=== PATIENT | male | born 2000 | race Native Hawaiian/Other Pacific Islander ===

== ENCOUNTER → 2022-03-12 | Outpatient (CLI) | payer BC ==
--- NOTE | 2022-03-12 16:30 | Diagnostic Imaging Report ---
INDICATION: Left testicular swelling. TECHNIQUE: Real-time grayscale sonographic imaging and color vascular evaluation of the scrotum. CORRELATION STUDY: None. FINDINGS: RIGHT TESTICLE: 3.2 x 1.8 x 3.0 cm. LEFT TESTICLE: 3.9 x 2.2 x 2.8 cm. The testicles are in normal location and demonstrate homogeneous echotexture. There is vascular flow to the testicles. Right epididymis is unremarkable. Left epididymis does demonstrate slight increased vascularity, and possibility of mild epididymitis not excluded and somewhat suspect. Small left-sided hydrocele. IMPRESSION: 1. Suspect for mild left-sided epididymitis along with small left-sided hydrocele. Dictated by: Dictated on workstation # [id number]
== END ==
LOC: RAD 15:30
PROVIDERS: ATTEND Nurse Practitioner Primary Care
DX: N50.89 Other specified disorders of the male genital organs (principal); N50.812 Left testicular pain
CPT/HCPCS: 76870